=== PATIENT | female | born 1955 | race Caucasian/White ===

== ENCOUNTER 2017-06-29 10:41 | Emergency (ER) | END 2017-06-29 13:36 | disposition home or self-care (01) ==

== ENCOUNTER 2017-07-15 06:39 | Emergency (ER) | END 2017-07-15 10:15 | disposition home or self-care (01) ==

== ENCOUNTER 2017-07-16 08:07 | Emergency (ER) | END 2017-07-16 11:20 | disposition home or self-care (01) ==

== ENCOUNTER 2018-08-16 15:10 | Emergency (ER) | payer BC ==
[~2018-08-16] VITALS: Ht 162.6 cm; Wt 83.7 kg
[~2018-08-16 15:10] MED LIST: CHOL100062 PO; FENO145T37 PO; GLIP5TAB13 PO; HYDR-3980 PO; IBUP-1542 PO; LISI-471 PO; MTF1000T PO; ONDA4TAB14 PO; ONDA4TAB8 PO; SIMV40TA2 PO
[2018-08-16 15:19] VITALS: Ht 162.6 cm; Wt 83.7 kg
[2018-08-16] MEDS ORDERED: ASPIRIN 81 MG TAB PO STA (16:39)
[2018-08-16 19:55] VITALS: BP 152/93; PULSE 84; RESP 17
--- NOTE | 2018-08-16 23:44 | ERD ---
ER Documentation Chief Complaint Chief Complaint pt is bib self with c/o chest pain starting 1 hr ago HPI 63-year-old female with a history of TIA, hypertension, diabetes and GERD presenting to the ER complaining of right parasternal lower chest pain that has been going on intermittently for the past 2 weeks. Her most recent episode started about 1 hour ago. She describes it as an aching pain that is intermittent, lasting a few minutes. Not worsened by exertion. No associated shortness of breath, diaphoresis, nausea, or vomiting. She saw her primary care doctor recently for this complaint and was given famotidine which has not been helping significantly with her symptoms. Her pain is worse in the morning but improves after taking her morning medications. She denies any associated abdominal pain. Pain is nonradiating, mild. No alleviating or exacerbating factors. ROS All systems reviewed and are negative except as per history of present illness. Medications Home Meds Active Scripts Ondansetron (Ondansetron Odt) 4 Mg Tab.rapdis, 4 MG PO Q6H PRN for NAUSEA AND/OR VOMITING, #10 TAB Prov:JESUS SOTO MD 07/16/17 Hydrocodone/Acetaminophen ([place] 10-325 Tablet) 1 Each Tablet, 1 TAB PO Q6H PRN for PAIN, #12 TAB Prov:JESUS SOTO MD 07/16/17 Ondansetron Hcl* (Zofran*) 4 Mg Tablet, 8 MG PO Q8H PRN for NAUSEA AND/OR VOMITING, #20 TAB Prov:LJ ARTHUR MD 07/15/17 Ibuprofen* (Motrin*) 600 Mg Tab, 600 MG PO Q6 PRN for PAIN, #30 TAB Prov:LJ ARTHUR MD 07/15/17 Reported Medications Cholecalciferol* (Vitamin D3*) 1,000 Unit Tablet, 1000 UNIT PO DAILY, TAB 07/15/17 Fenofibrate Nanocrystallized* (Fenofibrate*) 145 Mg Tablet, 145 MG PO DAILY, TAB 07/15/17 Simvastatin* (Zocor*) 40 Mg Tablet, 40 MG PO QHS, #30 TAB 07/15/17 Lisinopril* (Lisinopril*) 20 Mg Tablet, 20 MG PO BID, #30 TAB 07/15/17 Glipizide* (Glipizide*) 5 Mg Tablet, 5 MG PO BID, TAB 07/15/17 Metformin* (Glucophage*) 1,000 Mg Tablet, 1000 MG PO BID, #60 TAB 07/15/17 Allergies Allergies: Coded Allergies: No Known Allergy (Unverified , 07/15/17) PMhx/Soc History of Surgery: Yes (Right carotid endarterectomy) Anesthesia Reaction: No Hx Neurological Disorder: Yes ( TIAs) Hx Respiratory Disorders: No Hx Cardiac Disorders: Yes (HTN) Hx Psychiatric Problems: No Hx Miscellaneous Medical Probl: Yes (GERD) Hx Alcohol Use: No Hx Substance Use: No Hx Tobacco Use: No Smoking Status: Never smoker FmHx Family History: diabetes Physical Exam Vitals Vital Signs Date Temp Pulse Resp B/P (MAP) Pulse Ox O2 O2 Flow FiO2 Time Delivery Rate 08/16/18 98.0 84 17 152/93 98 Room Air 19:55 (112) 08/16/18 97.8 89 17 163/90 100 Room Air 17:35 (114) 08/16/18 97.8 98 18 177/89 97 Room Air 16:52 (118) 08/16/18 97.8 106 18 203/109 97 15:19 (140) Physical Exam Const: No acute distress Head: Atraumatic Eyes: Normal Conjunctiva ENT: Normal External Ears, Nose and Mouth. Neck: Full range of motion. No meningismus. Chest wall: Nontender to palpation Resp: Clear to auscultation bilaterally Cardio: Regular rate and rhythm, no murmurs. 2+ distal pulses in all 4 extremities Abd: Soft, non tender, non distended. Normal bowel sounds Skin: No petechiae or rashes Back: No midline or flank tenderness Ext: No cyanosis, or edema Neur: Awake and alert Psych: Normal Mood and Affect Result Diagram: 08/16/18 1645 08/16/18 1645 Results 24 hrs Laboratory Tests Test 08/16/18 16:45 White Blood Count 13.9 10^3/ul Red Blood Count 4.42 10^6/ul Hemoglobin 11.4 g/dl Hematocrit 35.7 % Mean Corpuscular Volume 80.8 fl Mean Corpuscular Hemoglobin 25.8 pg Mean Corpuscular Hemoglobin Concent 31.9 g/dl Red Cell Distribution Width 13.1 % Platelet Count 428 10^3/UL Mean Platelet Volume 10.8 fl Immature Granulocytes % 0.600 % Neutrophils % 69.4 % Lymphocytes % 22.0 % Monocytes % 6.5 % Eosinophils % 1.0 % Basophils % 0.5 % Nucleated Red Blood Cells % 0.0 /100WBC Immature Granulocytes # 0.080 10^3/ul Neutrophils # 9.6 10^3/ul Lymphocytes # 3.1 10^3/ul Monocytes # 0.9 10^3/ul Eosinophils # 0.1 10^3/ul Basophils # 0.1 10^3/ul Nucleated Red Blood Cells # 0.0 10^3/ul Sodium Level 138 mmol/L Potassium Level 4.5 mmol/L Chloride Level 103 mmol/L Carbon Dioxide Level 23 mmol/L Anion Gap 12 Blood Urea Nitrogen 25 mg/dl Creatinine 0.82 mg/dl Est Glomerular Filtrat Rate mL/min > 60 mL/min Glucose Level 210 mg/dl Calcium Level 10.7 mg/dl Troponin I < 0.012 ng/ml Current Medications Medications Dose Sig/Mago Start Time Status Last (Trade) Ordered Route PRN Stop Time Admin Dose Reason Admin Aspirin 162 mg ONCE STAT 08/16/18 DC 08/16/18 (Aspirin) PO 16:39 16:49 08/16/18 16:40 Procedures/MDM EMERGENT LABS AND DIAGNOSTIC STUDIES: Lab Results above were reviewed and interpreted by me. CBC: Mild leukocytosis, thrombocytosis, and mild anemia, unclear etiology BMP: Borderline hypercalcemia. No evidence of other electrolyte abnormality, renal failure, hypoglycemia Troponin within normal limits, not indicative of cardiac ischemia 12-lead EKG was interpreted by Chris Leong MD: Sinus tachycardia at 103 bpm Normal axis Normal intervals No acute ST or T wave changes suggestive of acute ischemia or STEMI. Radiology Results as interpreted by Radiology below were reviewed by Maurilio Leong MD: Chest x-ray shows no acute abnormalities Initial Nursing notes reviewed. Previous Medical Records requested via the Electronic Health Record. EMERGENCY DEPARTMENT COURSE / MEDICAL DECISION MAKING: The patient presents with chest pain. Vitals are stable. I considered but have a low suspicion for pulmonary embolism, aortic dissection, pneumothorax among other diagnoses. Patient's chest pain is very atypical and I have a low suspicion for acute coronary syndrome. Shared decision making occurred with patient and the decision has been made to discharge the patient for outpatient eval. Patient instructed to arrange follow up with PCP in the next 2 days and return to the ED for any new or worsening symptoms. Also discussed abnormal lab values and recommended repeat testing be done within a week. Patient's blood pressure was elevated (>120/80) but appears stable without evidence of hypertensive emergency or urgency. The patient was counseled about the risks of hypertension and urged to pursue outpatient monitoring and therapy within a week with their primary care physician. Departure Diagnosis: Primary Impression: Chest pain Chest pain type: other chest pain Qualified Codes: R07.89 - Other chest pain Additional Impression: Thrombocytosis Condition: Stable Patient Instructions: Chest Pain, Uncertain Cause Additional Instructions: See your primary care doctor for follow-up within the next 3-4 days. If any of your symptoms worsen, return to the ER immediately. BAILEY LEONG MD Aug 16, 2018 23:44
== END 2018-08-16 20:05 | disposition home or self-care (01) ==
LOC: E/R 15:10
DX: D47.3 Essential (hemorrhagic) thrombocythemia (principal); I10 Essential (primary) hypertension; E11.9 Type 2 diabetes mellitus without complications; Z79.84 Long term (current) use of oral hypoglycemic drugs; Z86.73 Personal history of transient ischemic attack (TIA), and cerebral infarction without residual deficits
CPT/HCPCS: 71045; 80048; 84484; 85025; 93005; Z7610; 36415

== ENCOUNTER 2019-03-25 11:48 | Emergency (ER) | payer BC, OTHER ==
[~2019-03-25] VITALS: Wt 89.0 kg
[~2019-03-25 11:48] MED LIST changes: +AMLO-147 ORAL; +ASPI-535 ORAL; -CHOL100062 PO; +CIPR500T4 PO; -FENO145T37 PO; -GLIP5TAB13 PO; -HYDR-3980 PO; -IBUP-1542 PO; +INSU100I33 SC; -LISI-471 PO; +LISI1TAB24 ORAL; +LORA0.5T ORAL; +METF100010 ORAL; -MTF1000T PO; -ONDA4TAB14 PO; -ONDA4TAB8 PO; +PRAV40TA76 PO; -SIMV40TA2 PO
[2019-03-25] MEDS ORDERED: KETOROLAC 15 MG INJ IV STA (15:54)
[2019-03-25] MEDS ORDERED: SOD CHLORIDE 0.9% 1,000 ML IV STA (15:54)
[2019-03-25] MEDS ORDERED: CEFTRIAXONE 1 GM/50 ML (PMX) 50 ML IVPB ONE (17:30)
[2019-03-25 17:52] VITALS: BP 116/76; PULSE 78; RESP 18
== END 2019-03-25 17:53 | disposition home or self-care (01) ==
LOC: E/R 11:48
DX: G62.9 Polyneuropathy, unspecified (principal); E11.65 Type 2 diabetes mellitus with hyperglycemia; I10 Essential (primary) hypertension; Z79.4 Long term (current) use of insulin; Z79.82 Long term (current) use of aspirin; Z86.73 Personal history of transient ischemic attack (TIA), and cerebral infarction without residual deficits
CPT/HCPCS: 76775; 80053; 81001; 83690; 85025; 87086; 96374; 96375; J0696; J1885; J7030; Z7502